=== PATIENT | female | born 1940 | race Caucasian/White ===

== ENCOUNTER → 2017-06-16 | Outpatient (CLI) | payer MEDICARE ==
[~2017-06-16] MED LIST: ALBU2.5V11 NEB; CHOL100014 PO; FLUT1AER INH; MULTIVITAMIN PO; PRED20TA PO
== END | disposition home or self-care (01) ==
LOC: CFH 13:42
PROVIDERS: ATTEND Internal Medicine Cardiovascular Disease
DX: I08.2 Rheumatic disorders of both aortic and tricuspid valves (principal); I27.20 Pulmonary hypertension, unspecified; F17.210 Nicotine dependence, cigarettes, uncomplicated
CPT/HCPCS: 93306

== ENCOUNTER 2018-05-09 09:56 | Emergency (ER) | payer MEDICARE ==
[~2018-05-09] VITALS: Ht 157.5 cm; Wt 100.0 kg
[~2018-05-09 09:56] MED LIST changes: +APIX5TAB PO; +CEFD300C37 PO; +DOXY100T9 PO; +METO25TA35 PO; +SIMV20TA3 PO
[2018-05-09] MEDS ORDERED: MULT-658 PO (10:06)
[2018-05-09] MEDS ORDERED: ALBUTEROL SULFATE 2.5 MG/3 ML NPPB ONE (10:30)
[2018-05-09] MEDS ORDERED: IPRATROPIUM 0.5 MG/2.5 ML INHA NPPB ONE (10:30)
[2018-05-09] MEDS ORDERED: SODIUM CHLORIDE FLUSH 10ML SYR IVF ONE (10:30)
[2018-05-09] MEDS ORDERED: methylPREDNISolone SOD SUCC 125 MG/2 ML IVP ONE (10:30)
[2018-05-09] MEDS ORDERED: ALBUTEROL/IPRATROPIUM 2.5MG/0.5MG, 3 ML ONE (10:34)
[2018-05-09 10:35] LABS: BASOPHILS # (AUTO) 0.07 x10^3/uL (0-0.1); BASOPHILS % (AUTO) 1 % (0-1); EOSINOPHILS # (AUTO) 0.15 x10^3/uL (0-0.4); EOSINOPHILS % (AUTO) 2 % (1-7); LYMPHOCYTES # (AUTO) 1.15 x10^3/uL (1-3.4); LYMPHOCYTES % (AUTO) 16 % (22-44); MD NO; MEAN CORPUSCULAR HEMOGLOBIN 30.2 pg (27.0-34.8); MEAN CORPUSCULAR HGB CONC 33.4 g/dL (32.4-35.8); MEAN CORPUSCULAR VOLUME 90.2 fL (80-100); MEAN PLATELET VOLUME 7.1 fL (7.4-10.4); MONOCYTES # (AUTO) 0.77 x10^3/uL (0.2-0.8); MONOCYTES % (AUTO) 11 % (2-9); NEUTROPHILS # (AUTO) 5.07 x10^3/uL (1.8-6.8); NEUTROPHILS % (AUTO) 70 % (42-75); PLATELET COUNT 334 x10^3/uL (130-400); RED BLOOD COUNT 4.52 x10^6/uL (3.82-5.3); RED CELL DISTRIBUTION WIDTH 13.8 % (9.6-15.2)
[2018-05-09 10:41] LABS: CREATININE 0.62 mg/dL (0.55-1.02)
[2018-05-09] MEDS ORDERED: methylPREDNISolone SOD SUCC 125 MG/2 ML ONE (10:43)
[2018-05-09 10:44] LABS: ALBUMIN 3.4 g/dL (3.4-5.0); BILIRUBIN,TOTAL 0.4 mg/dL (0.2-1.0); TROPONIN I < 0.015 ng/mL (0.000-0.045)
[2018-05-09 10:53] VITALS: BP 106/62
[2018-05-09 11:52] LABS: ALANINE AMINOTRANSFERASE 23 U/L (12-78); ALKALINE PHOSPHATASE 73 U/L (45-117); CALCIUM 8.6 mg/dL (8.5-10.1); TOTAL PROTEIN 6.3 g/dL (6.4-8.2)
[2018-05-09 12:16] LABS: ANION GAP 7 mmol/L (5-15); CHLORIDE 109 mmol/L (98-107)
== END 2018-05-09 13:19 | disposition home or self-care (01) ==
LOC: ED 13:10
DX: J44.1 Chronic obstructive pulmonary disease with (acute) exacerbation (principal)
CPT/HCPCS: 36415; 71045; 80053; 83880; 84484; 85025; 93005; 94640; 96374; 99285; J2930; J7613; J7644

== ENCOUNTER 2019-01-03 14:25 | Inpatient (IN) | payer MEDICARE ==
[~2019-01-03] VITALS: Ht 157.5 cm; Wt 51.5 kg
[~2019-01-03 14:25] MED LIST changes: +MULT-658 PO
--- NOTE | 2019-01-03 14:44 | NUR ---
RT PLACED PT ON BIPAP 35%. LAB IN TO DRAW ABG/LABS. RAD IN FOR CHEST DX
[2019-01-03] MEDS: ALBUTEROL/IPRATROPIUM 2.5MG/0.5MG, 3 ML NPPB SCH ×3 (14:47→20:58)
[2019-01-03] MEDS ORDERED: ALBUTEROL/IPRATROPIUM 2.5MG/0.5MG, 3 ML ONE ×2 (14:48→16:02)
[2019-01-03] MEDS ORDERED: methylPREDNISolone SOD SUCC 125 MG/2 ML ONE (14:50)
[2019-01-03] MEDS ORDERED: SODIUM CHLORIDE FLUSH 10ML SYR IVF ONE (15:00)
[2019-01-03] MEDS ORDERED: MAGNESIUM SULFATE 1 GM in SODIUM CHLORIDE 0.9% 50 ML IV ONE (15:00)
[2019-01-03] MEDS ORDERED: PLEASE ENTER HEIGHT AND WEIGHT MC SCH (15:00)
[2019-01-03] MEDS ORDERED: methylPREDNISolone SOD SUCC 125 MG/2 ML IVP ONE (15:00)
[2019-01-03 15:05] LABS: BASOPHILS # (AUTO) 0.04 x10^3/uL (0-0.1); BASOPHILS % (AUTO) 1 % (0-1); EOSINOPHILS % (AUTO) 3 % (1-7); LYMPHOCYTES % (AUTO) 18 % (22-44); MD NO; MEAN CORPUSCULAR HEMOGLOBIN 29.6 pg (27.0-34.8); MEAN CORPUSCULAR HGB CONC 32.6 g/dL (32.4-35.8); MEAN CORPUSCULAR VOLUME 90.8 fL (80-100); MEAN PLATELET VOLUME 7.3 fL (7.4-10.4); MONOCYTES # (AUTO) 0.86 x10^3/uL (0.2-0.8); MONOCYTES % (AUTO) 11 % (2-9); NEUTROPHILS # (AUTO) 5.28 x10^3/uL (1.8-6.8); NEUTROPHILS % (AUTO) 68 % (42-75); PLATELET COUNT 352 x10^3/uL (130-400); RED BLOOD COUNT 5.18 x10^6/uL (3.82-5.3); RED CELL DISTRIBUTION WIDTH 13.5 % (9.6-15.2)
[2019-01-03 15:16] LABS: INTERNATIONAL NORMALIZED RATIO 1.02 (0.93-1.1); PROTHROMBIN TIME 10.7 Seconds (9.6-11.5)
[2019-01-03 15:17] LABS: ALBUMIN 3.6 g/dL (3.4-5.0); ANION GAP 5 mmol/L (5-15); CALCIUM 9.3 mg/dL (8.5-10.1); CHLORIDE 108 mmol/L (98-107)
--- NOTE | 2019-01-03 15:20 | NUR ---
LATE ENTRY: PT ARRIVES TO ED FROM HOME BIB EMS FOR SOB AND FATIGUE. PT REPORTS THAT SHE HAS BEEN ILL FOR 2 DAYS AND NO IMPROVMENET. PT REPORTS TODAY SHE HAD SHARP CHEST PRESURE WITH NO RADIATION. PT VISIBLY IN RESP DISTRESS AND VERBALIZED TO MD SHE DOES NOT WANT TO BE INTUBATED AT THIS TIME. PT PLACED ON BI-PAP AT 35% O2 AND PT EN ROUTE RECIEVED TWO ALBUTEROLS AND 1 DUONEB. PT HAD NO AIR MOVEMENT BUT AFTER TREAMTENTS AIR MOVEMENT IS HEARD BUT PT IS VERY TIGHT. PT CONNECTED TO ALL MONITORS AND EKG COMPLETED. SECOND PIV ESTABLISHES BY SITA EVANS. PT BREATHIGN ABOUT 30 TIMES A MINUTE AND TRIPODING AND ONLY TO SPEAK 2-3 WORD SENTANCES. PT EMS REPORT WAS 83% ON 4 L AT HOME VIA [facility].
[2019-01-03 15:21] LABS: ALANINE AMINOTRANSFERASE 15 U/L (12-78); ALKALINE PHOSPHATASE 87 U/L (45-117); BILIRUBIN,TOTAL 0.4 mg/dL (0.2-1.0); CREATININE 0.77 mg/dL (0.55-1.02); TOTAL PROTEIN 6.8 g/dL (6.4-8.2); TROPONIN I < 0.015 ng/mL (0.000-0.045)
--- NOTE | 2019-01-03 16:15 | NUR ---
Pt resting on gurney sitting upright with 96% pulse ox sat. at 2L oxygen via nasal cannula. Pt is able to speak in full sentences and states, "I feel better". Pt remains connected to NIBP cuff, continous pulse ox, and risk management specialist. PIV medications finished infusing per EMAR. Call light within reach. Bedrails up x 2 for safety measures. NADN. No needs expressed at this time. Toileting and repositioning offered. Pt declined.
[2019-01-03] MEDS ORDERED: hydrALAzine 20 MG/ML, 1ML IVPush PRN (16:30)
[2019-01-03] MEDS ORDERED: ACETAMINOPHEN 325 MG TABLET PO PRN (16:30)
[2019-01-03] MEDS ORDERED: SODIUM CHLORIDE FLUSH 10ML SYR IVF PRN (16:30)
[2019-01-03] MEDS ORDERED: ONDANSETRON 2MG/ML, 2ML IVPush PRN (16:30)
--- NOTE | 2019-01-03 16:57 | NUR ---
Provided report to CRISTINA Tay. All questions answered. Pt ready to transfer to floor from ED.
--- NOTE | 2019-01-03 17:08 | NUR ---
Pt transfered to floor from ED and left with all personal belongings.
--- NOTE | 2019-01-03 17:08 | NUR ---
MELISSA. on transfer from ED to floor.
[2019-01-03 17:50] VITALS: BP 110/69
[2019-01-03] MEDS: methylPREDNISolone SOD SUCC 125 MG/2 ML IVPush SCH (17:55)
[2019-01-03 20:00] VITALS: BP 106/63
[2019-01-04 02:00] VITALS: BP 101/59
[2019-01-04] MEDS: methylPREDNISolone SOD SUCC 125 MG/2 ML IVPush SCH ×3 (02:47→18:41)
[2019-01-04 05:47] LABS: BASOPHILS % (AUTO) 0 % (0-1); EOSINOPHILS % (AUTO) 0 % (1-7); LYMPHOCYTES # (AUTO) 0.43 x10^3/uL (1-3.4); LYMPHOCYTES % (AUTO) 9 % (22-44); MD NO; MEAN CORPUSCULAR HEMOGLOBIN 28.9 pg (27.0-34.8); MEAN CORPUSCULAR HGB CONC 32.5 g/dL (32.4-35.8); MONOCYTES # (AUTO) 0.15 x10^3/uL (0.2-0.8); MONOCYTES % (AUTO) 3 % (2-9); NEUTROPHILS # (AUTO) 3.99 x10^3/uL (1.8-6.8); NEUTROPHILS % (AUTO) 87 % (42-75); PLATELET COUNT 296 x10^3/uL (130-400); RED BLOOD COUNT 4.49 x10^6/uL (3.82-5.3); RED CELL DISTRIBUTION WIDTH 13.5 % (9.6-15.2)
[2019-01-04 05:50] LABS: ANION GAP 7 mmol/L (5-15); CALCIUM 9.2 mg/dL (8.5-10.1); CHLORIDE 108 mmol/L (98-107)
[2019-01-04 05:51] LABS: CREATININE 0.56 mg/dL (0.55-1.02)
[2019-01-04] MEDS: ALBUTEROL/IPRATROPIUM 2.5MG/0.5MG, 3 ML NPPB SCH ×4 (08:14→19:34)
[2019-01-04 08:27] VITALS: BP 103/67
[2019-01-04] MEDS ORDERED: ALBU8.5H8 IH (10:08)
[2019-01-04] MEDS ORDERED: ATOR20TA37 PO (10:08)
[2019-01-04] MEDS ORDERED: TRAZ50TA66 PO (10:08)
[2019-01-04] MEDS ORDERED: FLUT1BLS3 IH (10:09)
[2019-01-04 13:04] VITALS: BP 117/71
[2019-01-04 19:33] VITALS: BP 99/62
[2019-01-05 01:02] VITALS: BP 112/67
[2019-01-05] MEDS: methylPREDNISolone SOD SUCC 125 MG/2 ML IVPush SCH ×3 (02:57→18:06)
[2019-01-05] MEDS: ALBUTEROL/IPRATROPIUM 2.5MG/0.5MG, 3 ML NPPB SCH ×4 (07:10→19:58)
[2019-01-05 07:55] VITALS: BP 100/63
[2019-01-05] MEDS: methylPREDNISolone SOD SUCC 40 MG/ML IV SCH ×2 (12:00→20:44)
[2019-01-05] MEDS: MORPHINE SULFATE 4 MG/ML, 1ML IVPush PRN (12:13)
[2019-01-05 14:10] VITALS: BP 117/73
[2019-01-05 19:48] VITALS: BP 168/102
[2019-01-05 20:00] VITALS: BP 103/66
[2019-01-06 00:31] VITALS: BP 103/64
[2019-01-06] MEDS: methylPREDNISolone SOD SUCC 125 MG/2 ML IVPush SCH ×3 (02:25→18:33)
[2019-01-06] MEDS: methylPREDNISolone SOD SUCC 40 MG/ML IV SCH (04:31)
[2019-01-06 07:24] VITALS: BP 103/68
[2019-01-06] MEDS: ALBUTEROL/IPRATROPIUM 2.5MG/0.5MG, 3 ML NPPB SCH ×3 (10:30→20:00)
[2019-01-06 10:35] VITALS: BP 112/67
[2019-01-06] MEDS: MORPHINE SULFATE 4 MG/ML, 1ML IVPush PRN ×2 (10:37→15:51)
[2019-01-06 12:15] LABS: TROPONIN I < 0.015 ng/mL (0.000-0.045)
[2019-01-06 12:39] VITALS: BP 106/62
[2019-01-06] MEDS ORDERED: CEFTRIAXONE 500 MG in DEXTROSE 5% 50 ML IV SCH (15:00)
[2019-01-06] MEDS: CEFTRIAXONE PMX 1GM/50ML 50 ML IV SCH (15:53)
[2019-01-06 19:47] VITALS: BP 102/63
[2019-01-07 01:43] VITALS: BP 118/66
[2019-01-07] MEDS: MORPHINE SULFATE 4 MG/ML, 1ML IVPush PRN ×3 (02:02→14:51)
[2019-01-07] MEDS: methylPREDNISolone SOD SUCC 125 MG/2 ML IVPush SCH ×3 (02:02→17:26)
[2019-01-07] MEDS: ALBUTEROL/IPRATROPIUM 2.5MG/0.5MG, 3 ML NPPB SCH ×4 (07:03→20:19)
[2019-01-07 07:40] VITALS: BP 129/78
[2019-01-07] MEDS: LORazepam 2 MG/ML, 1ML IVPush PRN ×2 (11:35→21:36)
[2019-01-07 12:26] VITALS: BP 106/65
[2019-01-07] MEDS: CEFTRIAXONE PMX 1GM/50ML 50 ML IV SCH (15:44)
[2019-01-07 18:47] VITALS: BP 128/74
[2019-01-08 01:45] VITALS: BP 96/52
[2019-01-08] MEDS: methylPREDNISolone SOD SUCC 125 MG/2 ML IVPush SCH ×2 (02:10→08:25)
[2019-01-08 07:20] VITALS: BP 126/70
[2019-01-08] MEDS: ALBUTEROL/IPRATROPIUM 2.5MG/0.5MG, 3 ML NPPB SCH ×3 (07:20→13:50)
[2019-01-08] MEDS ORDERED: CEFD300C37 PO (10:28)
[2019-01-08] MEDS ORDERED: PRED20TA PO (10:28)
[2019-01-08] MEDS: LORazepam 2 MG/ML, 1ML IVPush PRN (10:54)
[2019-01-08 13:53] VITALS: BP 98/59
== END 2019-01-08 15:50 | disposition home health service (06) | DRG 190 ==
LOC: ED 16:11 → EDIP 16:16 → 4WST 17:13 → DCLOUNGE 01-08 15:41
PROVIDERS: ADMIT Hospitalist; ATTEND Hospitalist
PROC: 5A09357 Assistance with Respiratory Ventilation, Less than 24 Consecutive Hours, Continuous Positive Airway Pressure (ICD-10-PCS; principal; 2019-01-03)
DX: J44.1 Chronic obstructive pulmonary disease with (acute) exacerbation (principal); J96.21 Acute and chronic respiratory failure with hypoxia; R65.10 Systemic inflammatory response syndrome (SIRS) of non-infectious origin without acute organ dysfunction; I50.32 Chronic diastolic (congestive) heart failure; D68.69 Other thrombophilia; Z66 Do not resuscitate; E78.00 Pure hypercholesterolemia, unspecified; E78.5 Hyperlipidemia, unspecified; I27.20 Pulmonary hypertension, unspecified; I08.2 Rheumatic disorders of both aortic and tricuspid valves; I48.91 Unspecified atrial fibrillation; J43.9 Emphysema, unspecified; Z82.49 Family history of ischemic heart disease and other diseases of the circulatory system; Z82.5 Family history of asthma and other chronic lower respiratory diseases; Z87.891 Personal history of nicotine dependence; Z90.710 Acquired absence of both cervix and uterus; Z90.49 Acquired absence of other specified parts of digestive tract; Z99.81 Dependence on supplemental oxygen
CPT/HCPCS: 36415; 36600; 71045; 80048; 80053; 82803; 83605; 83880; 84145; 84484; 85025; 85610; 85730; 87040; 93005; 93306; 94640; 94660; G0378; J0696; J3475; J7620; J2060; J2270; J2920; J2930; J7512

== ENCOUNTER 2019-02-02 10:27 | Inpatient (IN) | payer MEDICARE ==
[~2019-02-02] VITALS: Ht 157.5 cm; Wt 52.0 kg
[2019-02-05 13:41] VITALS: BP 105/60
== END 2019-02-05 16:20 | disposition home health service (06) | DRG 64 ==
LOC: ED 10:36 → EDIP 11:27 → 4EST 13:09
PROVIDERS: ADMIT Internal Medicine; ATTEND Internal Medicine
PROC: 0T9B70Z Drainage of Bladder with Drainage Device, Via Natural or Artificial Opening (ICD-10-PCS; principal; 2019-02-02)
PROC: B3151ZZ Fluoroscopy of Bilateral Common Carotid Arteries using Low Osmolar Contrast (ICD-10-PCS; 2019-02-02)
PROC: B31G1ZZ Fluoroscopy of Bilateral Vertebral Arteries using Low Osmolar Contrast (ICD-10-PCS; 2019-02-02)
PROC: B31S1ZZ Fluoroscopy of Right Pulmonary Artery using Low Osmolar Contrast (ICD-10-PCS; 2019-02-02)
PROC: B3181ZZ Fluoroscopy of Bilateral Internal Carotid Arteries using Low Osmolar Contrast (ICD-10-PCS; 2019-02-02)
DX: I63.40 Cerebral infarction due to embolism of unspecified cerebral artery (principal); G93.41 Metabolic encephalopathy; E87.0 Hyperosmolality and hypernatremia; G81.91 Hemiplegia, unspecified affecting right dominant side; I48.92 Unspecified atrial flutter; I50.32 Chronic diastolic (congestive) heart failure; J98.11 Atelectasis; J96.10 Chronic respiratory failure, unspecified whether with hypoxia or hypercapnia; R47.01 Aphasia; E78.00 Pure hypercholesterolemia, unspecified; E78.5 Hyperlipidemia, unspecified; E86.0 Dehydration; E87.6 Hypokalemia; F32.9 Major depressive disorder, single episode, unspecified; I11.0 Hypertensive heart disease with heart failure; I27.20 Pulmonary hypertension, unspecified; I48.0 Paroxysmal atrial fibrillation; J43.9 Emphysema, unspecified; R13.10 Dysphagia, unspecified; R29.810 Facial weakness; R56.9 Unspecified convulsions; Z79.01 Long term (current) use of anticoagulants; Z82.49 Family history of ischemic heart disease and other diseases of the circulatory system; Z86.711 Personal history of pulmonary embolism; Z86.718 Personal history of other venous thrombosis and embolism; Z86.73 Personal history of transient ischemic attack (TIA), and cerebral infarction without residual deficits; Z90.710 Acquired absence of both cervix and uterus; I65.23 Occlusion and stenosis of bilateral carotid arteries
CPT/HCPCS: 36415; 70450; 70496; 70498; 70551; 70552; 71045; 80047; 80053; 80061; 80076; 81001; 82570; 82962; 83605; 83735; 84133; 84300; 84443; 85025; 85520; 85610; 85730; 87040; 93005; 93306; 95816; 99291; A9585; G0378; J0696; J1953; J2405; J3480; Q9967; 92523-GN; J7040